=== PATIENT | male | born 1985 | race African-American/Black ===

== ENCOUNTER 2016-12-18 18:50 | Emergency (ER) | payer SELFPAY ==
[2016-12-18 20:27] LABS: CHLORIDE,CL 105 mmol/L (98-110); SODIUM,NA 140 mmol/L (136-146)
--- NOTE | 2016-12-18 20:36 | EDM.PDOC ---
ED HPI HEADACHE COMPLAINT - General Chief Complaint: Headache Stated Complaint: PT HAS MIGRAINE Time Seen by Provider: 12/18/16 19:00 Source of Information: Reports: Patient History Limitations: Reports: No limitations - History of Present Illness INITIAL COMMENTS - FREE TEXT/NARRATIVE: HISTORY AND PHYSICAL: History of present illness: [Patient comes to the emergency room with his significant other complaining of dizziness, lightheadedness with position changes, and a headache to both temples. Mild headache across his forehead. Describes the adventist pain as an aching sensation. Symptoms have been present for the past 3-4 days and has been unchanged. He's otherwise felt well. Denies any recent illness and infection. No recent hospitalizations or surgeries. He's not taken any medications for his symptoms. He drinks approximately 60 ounces of water per day. He follows a vegan diet other than occasionally eating chicken. He denies fever and chills, chest pain shortness of breath and difficulty breathing. He's had no abdominal pain, nausea, vomiting. No change in his bowel or bladder. No dysuria or hematuria. No body aches, muscle aches or joint pains. Swelling to his feet or lower legs. He's not been working for the past couple of months. He denies drug or tobacco use. Drinks alcohol one to 2 times per year. Has not established care with a local PCP. SO thinks that patient may have a history of seasonal allergies. ] Review of systems: As per history of present illness and below otherwise all systems reviewed and negative. Past medical history: As per history of present illness and as reviewed below otherwise noncontributory. Surgical history: As per history of present illness and as reviewed below otherwise noncontributory. Social history: No reported history of drug or alcohol abuse. Family history: As per history of present illness and as reviewed below otherwise noncontributory. Physical exam: General: Well-developed well-nourished white male in no acute distress. HEENT: Atraumatic, normocephalic. Air-fluid levels present behind TMs bilaterally. No erythema or bulging. negative for conjunctival pallor or scleral icterus. mucous membranes moist. Moderate amount of PND present otherwise throat is clear. neck supple, nontender, and without lymphadenopathy. Lungs: Clear to auscultation, breath sounds equal bilaterally. No wheezing crackles or rales. Heart: S1S2, regular rate rhythm. negative for clicks, rubs, or JVD. Abdomen: Soft, nondistended, nontender. Negative for masses or hepatosplenomegaly. Negative for costovertebral tenderness. Pelvis: Stable nontender. Genitourinary: Deferred. Rectal: Deferred. Extremities: Patient is ambulatory without deformity. Extremities are atraumatic. No swelling or cyanosis to feet or lower legs. No calf pain. Neurovascular unremarkable. Neuro: Awake, alert, oriented. Cranial nerves II through XII unremarkable. Motor and sensory unremarkable throughout. Exam nonfocal. Psych: Alert oriented pleasant and conversational with examiner. Diagnostics: [CBC, CMP, UA, head CT w/o contrast] Impression: [Dizziness headache allergic rhinitis type symptoms] Plan: [Discussed w/ patient that his lab and CT findings are normal. Discussed that he may have some seasonal allergies or a viral syndrome. Recommend taking a daily antihistamine, pushing fluids, and getting plenty of rest. Establish w/ local PCP. Patient is in agreement w/ today's plan. All questions are answered and concerns are addressed. ] Definitive disposition and diagnosis as appropriate pending reevaluation and review of above. - Related Data Allergies/ADRs: Allergies Allergy/AdvReac Type Severity Reaction Status Date / Time No Known Allergies Allergy Verified 12/18/16 19:03 Home Meds: Home Meds . [No Known Home Meds] 12/18/16 [History] Past Medical History - Past Health History Medical/Surgical History: Denies Medical/Surgical History - Infectious Disease History Infectious Disease History: Reports: Measles Social & Family History - Family History Family Medical History: Noncontributory - Tobacco Use Smoking Status *Q: Never Smoker - Recreational Drug Use Recreational Drug Use: No ED ROS GENERAL - Review of Systems Review Of Systems: ROS reveals no pertinent complaints other than HPI. - Physical Exam Exam: See Below Course - Vital Signs Last Recorded V/S: Last Vital Signs Temp 97.5 F 12/18/16 19:03 Pulse 67 12/18/16 21:36 Resp 17 12/18/16 21:36 BP 124/77 12/18/16 21:36 Pulse Ox 98 12/18/16 21:36 Orthostatic Blood Pressure [ 134/86 Standing] Orthostatic Blood Pressure [ 125/80 Sitting] Orthostatic Blood Pressure [ 125/80 Supine] - Orders/Labs/Meds Labs: Laboratory Tests 12/18/16 12/18/16 12/18/16 Range/Units 19:35 19:53 19:53 WBC 5.71 (4.0-11.0) K/uL RBC 5.28 (4.50-5.90) M/uL Hgb 15.8 (13.0-17.0) g/dL Hct 46.1 (38.0-50.0) % MCV 87.3 (80.0-98.0) fL MCH 29.9 (27.0-32.0) pg MCHC 34.3 (31.0-37.0) g/dL RDW Std Deviation 42.6 (28.0-62.0) fl RDW Coeff of Rosalia 14 (11.0-15.0) % Plt Count 239 (150-400) K/uL MPV 9.90 (7.40-12.00) fL Neut % (Auto) 47.9 L (48.0-80.0) % Lymph % (Auto) 41.2 H (16.0-40.0) % [place] % (Auto) 5.1 (0.0-15.0) % Eos % (Auto) 5.1 (0.0-7.0) % Baso % (Auto) 0.7 (0.0-1.5) % Neut # (Auto) 2.7 (1.4-5.7) K/uL Lymph # (Auto) 2.4 (0.6-2.4) K/uL [place] # (Auto) 0.3 (0.0-0.8) K/uL Eos # (Auto) 0.3 (0.0-0.7) K/uL Baso # (Auto) 0.0 (0.0-0.1) K/uL Nucleated RBC % 0.0 /100WBC Nucleated RBCs # 0 K/uL Sodium 140 (136-146) mmol/L Potassium 4.2 (3.5-5.1) mmol/L Chloride 105 (98-110) mmol/L Carbon Dioxide 27 (21-31) mmol/L BUN 8 (6.0-23.0) mg/dL Creatinine 0.8 (0.6-1.5) mg/dL Est Cr Clr Drug Dosing 127.06 mL/min Estimated GFR (MDRD) > 60.0 ml/min Glucose 92 (60-110) mg/dL Calcium 10.0 (8.8-10.8) mg/dL Total Bilirubin 0.4 (0.1-1.5) mg/dL AST 31 (5-40) IU/L ALT 48 (8-54) IU/L Alkaline Phosphatase 107 (40-150) Total Protein 7.7 (6.0-8.0) g/dL Albumin 4.1 (3.5-5.0) g/dL Globulin 3.6 H (2.0-3.5) g/dL Albumin/Globulin Ratio 1.1 L (1.3-2.8) Urine Color YELLOW Urine Appearance CLEAR Urine pH 5.5 (5.0-8.0) Ur Specific [place] < 1.005 (1.001-1.035) Urine Protein NEGATIVE (NEGATIVE) mg/dL Urine Glucose (UA) NEGATIVE (NEGATIVE) mg/dL Urine Ketones NEGATIVE (NEGATIVE) mg/dL Urine Occult Blood NEGATIVE (NEGATIVE) Urine Nitrite NEGATIVE (NEGATIVE) Urine Bilirubin NEGATIVE (NEGATIVE) Urine Urobilinogen 0.2 (<2.0) EU/dL Ur Leukocyte Esterase NEGATIVE (NEGATIVE) Urine RBC 0-1 (0-2/HPF) Urine WBC 0-2 (0-5/HPF) Ur Epithelial Cells RARE (NONE-FEW) Amorphous Sediment TEST DEPARTMENT HELPER Urine Bacteria FEW (NEGATIVE) Departure - Departure Time of Disposition: 21:10 Disposition: Home, Self-Care 01 Condition: good Clinical Impression: Dizziness Allergic rhinitis Qualifiers: Allergic rhinitis trigger: other Allergic rhinitis seasonality: unspecified seasonality Qualified Code(s): J30.89 - Other allergic rhinitis Instructions: Dizziness, Allergic Rhinitis Referrals: PCP,None [Primary Care Provider] - Forms: ED Department Discharge Additional Instructions: The following information is given to patients seen in the emergency department who are being discharged to home. This information is to outline your options for follow-up care. We provide all patients seen in our emergency department with a follow-up referral. The need for follow-up, as well as the timing and circumstances, are variable depending upon the specifics of your emergency department visit. If you don't have a primary care physician on staff, we will provide you with a referral. We always advise you to contact your personal physician following an emergency department visit to inform them of the circumstance of the visit and for follow-up with them and/or the need for any referrals to a consulting specialist. The emergency department will also refer you to a specialist when appropriate. This referral assures that you have the opportunity for follow-up care with a specialist. All of these measure are taken in an effort to provide you with optimal care, which includes your follow-up. Under all circumstances we always encourage you to contact your private physician who remains a resource for coordinating your care. When calling for follow-up care, please make the office aware that this follow-up is from your recent emergency room visit. If for any reason you are refused follow-up, please contact the [facility] emergency department at and asked to speak to the emergency department charge nurse. [facility] [address] [place] [id number] Your lab results are completely normal. Your head CT shows no masses, bleeds, or abnormalities. Establish care with a local primary care provider at the clinic listed above and followup in 48-72 hours. Be sure you are drinking plenty of fluids getting plenty of rest. Recommend Claritin 10 mg or Zyrtec 10 mg daily. Return to ER as needed and as discussed.
[2016-12-18 21:38] VITALS: BP 124/77
--- NOTE | 2016-12-19 10:27 | CT ---
EXAM DATE: 12/18/16 PATIENT'S AGE: 31 Patient: ROSA DAVIS Facility: [place], [place] Site . Site : 1985 Study: CT Head [id number] 7:59:25 PM Ordering Physician: Doctor Duvall Final Report: INDICATION: Pain. Blackout episodes. TECHNIQUE: Noncontrast head CT. FINDINGS: No intracranial hemorrhage, hydrocephalus, mass effect, or shift of midline structures. No evidence for ischemic change or infarction. The calvarium and skull base are negative for fractures. The included paranasal sinuses and mastoid air cells are clear with the exception of a tiny polyps or retention cysts within the right maxillary sinus. IMPRESSION: No acute intracranial process identified. Dictated by Von Lopez MD @ 12/18/2016 8:16:57 PM Dictated by: Von Lopez MD @ 12/18/2016 20:17:05 (Electronic Signature) Report Signed by Proxy and Original Signed Document filed in the Medical Record. MTDD
== END 2016-12-18 21:38 | disposition home or self-care (01) ==
LOC: MW.ED 18:50
DX: R42 Dizziness and giddiness (principal); J30.89 Other allergic rhinitis
CPT/HCPCS: 36415; 70450; 70450-26; 80053; 81001; 85025; 99282; 99284-25

== ENCOUNTER 2018-02-16 18:14 | Emergency (ER) | payer SELFPAY ==
--- NOTE | 2018-02-16 18:23 | EDM.PDOC ---
ED HPI GENERAL MEDICAL PROBLEM - General Stated Complaint: HEAD IS SHAKING Time Seen by Provider: 02/16/18 18:16 - History of Present Illness INITIAL COMMENTS - FREE TEXT/NARRATIVE: HISTORY AND PHYSICAL: History of present illness: Patient 32-year-old black male with no significant past medical history presents with a concern of request for medical screening exam per his for symptoms that he's had for the last year the symptoms are occasionally his head shakes he is aware when this occurs there is no other motor or sensory signs or symptoms or other concern patient states he is here at the request of his otherwise would not be here is not sought medical care prior to this states these episodes are intermittent over last year. There's been no progression in either intensity or frequency Review of systems: As per history of present illness and below otherwise all systems reviewed and negative. Past medical history: As per history of present illness and as reviewed below otherwise noncontributory. Surgical history: As per history of present illness and as reviewed below otherwise noncontributory. Social history: No reported history of drug or alcohol abuse. Family history: As per history of present illness and as reviewed below otherwise noncontributory. Physical exam: HEENT: Atraumatic, normocephalic, pupils reactive, negative for conjunctival pallor or scleral icterus, mucous membranes moist, throat clear, neck supple, nontender, trachea midline. Lungs: Clear to auscultation, breath sounds equal bilaterally, chest nontender. Heart: S1S2, regular, negative for clicks, rubs, or JVD. Abdomen: Soft, nondistended, nontender. Negative for masses or hepatosplenomegaly. Negative for costovertebral tenderness. Pelvis: Stable nontender. Genitourinary: Deferred. Rectal: Deferred. Extremities: Atraumatic, negative for cords or calf pain. Neurovascular unremarkable. Neuro: Awake, alert, oriented. Cranial nerves II through XII unremarkable. Cerebellum unremarkable. Motor and sensory unremarkable throughout. Exam nonfocal. Diagnostics: CBC CMP Therapeutics: None Impression: 1 medical screening exam #2 rule out movement disorder# Definitive disposition and diagnosis as appropriate pending reevaluation and review of above. - Related Data Allergies Allergy/AdvReac Type Severity Reaction Status Date / Time No Known Allergies Allergy Verified 12/18/16 19:03 Home Meds: Home Meds . [No Known Home Meds] 12/18/16 [History] Past Medical History - Past Health History Medical/Surgical History: Denies Medical/Surgical History - Infectious Disease History Infectious Disease History: Reports: Measles Social & Family History - Family History Family Medical History: Noncontributory ED ROS GENERAL - Review of Systems Review Of Systems: ROS reveals no pertinent complaints other than HPI. ED EXAM, GENERAL - Physical Exam Exam: See Below (dictation) Course - Orders/Labs/Meds Orders: Active Orders 24 hr Category Date Time Status CBC WITH AUTO DIFF [HEME] Stat Lab 02/16/18 18:20 Ordered COMPREHENSIVE METABOLIC PN,CMP [CHEM] Stat Lab 02/16/18 18:20 Ordered Departure - Departure Time of Disposition: 18:22 Disposition: Home, Self-Care 01 Condition: Good Clinical Impression: Encounter for medical screening examination - Discharge Information Referrals: PCP,None [Primary Care Provider] - Additional Instructions: The following information is given to patients seen in the emergency department who are being discharged to home. This information is to outline your options for follow-up care. We provide all patients seen in our emergency department with a follow-up referral. The need for follow-up, as well as the timing and circumstances, are variable depending upon the specifics of your emergency department visit. If you don't have a primary care physician on staff, we will provide you with a referral. We always advise you to contact your personal physician following an emergency department visit to inform them of the circumstance of the visit and for follow-up with them and/or the need for any referrals to a consulting specialist. The emergency department will also refer you to a specialist when appropriate. This referral assures that you have the opportunity for followup care with a specialist. All of these measure are taken in an effort to provide you with optimal care, which includes your followup. Under all circumstances we always encourage you to contact your private physician who remains a resource for coordinating your care. When calling for followup care, please make the office aware that this follow-up is from your recent emergency room visit. If for any reason you are refused follow-up, please contact the [facility] emergency department at and asked to speak to the emergency department charge nurse. [facility] [address] [place] [id number] [facility] Specialty [facility] - Neurology Professional Building [address] [place] [address], [address] [place] [address] Call to schedule routine appointments above with primary medical clinic and neurology return as needed as discussed - My Orders Last 24 Hours: My Active Orders 02/16/18 18:20 CBC WITH AUTO DIFF [HEME] Stat COMPREHENSIVE METABOLIC PN,CMP [CHEM] Stat - Assessment/Plan Last 24 Hours: My Active Orders 02/16/18 18:20 CBC WITH AUTO DIFF [HEME] Stat COMPREHENSIVE METABOLIC PN,CMP [CHEM] Stat
[2018-02-16 18:58] LABS: CHLORIDE,CL 104 mmol/L (98-107); SODIUM,NA 140 mmol/L (136-148)
[2018-02-16 19:25] VITALS: BP 129/76
== END 2018-02-16 19:22 | disposition home or self-care (01) ==
LOC: MW.ED 18:14
DX: Z13.9 Encounter for screening, unspecified (principal)
CPT/HCPCS: 36415; 80053; 85025; 99282; 99283